=== PATIENT | male | born 1995 | race Caucasian/White ===

== ENCOUNTER 2017-06-26 10:16 | Emergency (ER) | payer SELFPAY ==
[2017-06-26 12:00] VITALS: TEMP 96.6
--- NOTE | 2017-06-26 12:48 | ED.PDOC ---
History of Present Illness - General Chief Complaint: ENT Problem Stated Complaint: sore throat,fever Time Seen by Provider: 06/26/17 12:44 Source: patient Exam Limitations: no limitations - History of Present Illness Initial Comments: Mannie Brooks 22 y/o male seen today with non productive cough for 2 weeks , achy throat today,and flulike symptoms Timing/Duration: gradual - see hpi, other Severity: moderate EENT Location: throat Prearrival Treatment: other - took OTC cough /cold medicines Presenting Symptoms: see hpi Improving Factors: nothing Worsening Factors: nothing Associated Symptoms: cough Allergies/Adverse Reactions: Allergies NO KNOWN ALLERGY Allergy (Verified 06/26/17 12:00) Home Medications: Ambulatory Orders Albuterol Inhaler [Ventolin Hfa Inhaler] 108 mcg IN Q6HRS PRN #1 inh 06/26/17 Amoxicillin [Amoxil] 1,000 mg PO BID #30 cap 06/26/17 Review of Systems - Review of Systems Constitutional: States: no symptoms reported EENTM: States: see HPI, throat pain Respiratory: States: see HPI, cough Cardiology: States: no symptoms reported Gastrointestinal/Abdominal: States: no symptoms reported Genitourinary: States: no symptoms reported Musculoskeletal: States: muscle pain All other Systems: Reviewed and Negative, No Change from Baseline Past Medical History (General) - Patient Medical History Hx Stroke: No Hx Asthma: Yes Hx Congestive Heart Failure: No Hx Diabetes: No Surgical History: no surgical history - Vaccination History Hx Influenza Vaccination: No - Social History Hx Tobacco Use: Yes Hx Chewing Tobacco Use: Yes Family Medical History - Family History Father Family History: Unknown Living Status: Unknown Physical Exam - Physical Exam General Appearance: Alert, Comfortable, No apparent distress Eye Exam: bilateral normal Ear Exam: bilateral ear: auricle normal, canal normal, TM normal Nasal Exam: normal inspection Throat Exam: normal mouth inspection, pharynx normal Neck: non-tender, supple, trachea midline Cardiovascular/Respiratory: regular rate, rhythm, no M/R/G, normal peripheral pulses, no respiratory distress, other - speaks in full sentences Abdominal Exam: non-tender Neurologic: alert, oriented x 3 Skin Exam: normal color, warm/dry Progress - Progress Progress: 06/26/17 12:52 Last Vital Signs Temp 96.6 F L 06/26/17 11:57 Pulse 56 L 06/26/17 11:57 Resp 20 06/26/17 11:57 BP 129/78 06/26/17 11:57 Pulse Ox 99 06/26/17 11:57 - Results/Orders Results/Orders: flu A/B;Strep test-negative Departure - Departure Clinical Impression: Asthmatic bronchitis with acute exacerbation Qualifiers: Asthma severity: unspecified severity Qualified Code(s): J45.901 - Unspecified asthma with (acute) exacerbation Time of Disposition: 12:53 Disposition: Discharge to Home or Self Care Condition: Good Departure Forms: ED Discharge - Pt. Copy, Patient Portal Self Enrollment Instructions: Tips for Controlling Your Asthma, The Connection Between Allergies and Asthma, DI for Asthma -- Adult Prescriptions: Albuterol Inhaler [Ventolin Hfa Inhaler] 108 mcg IN Q6HRS PRN #1 inh PRN Reason: Wheezing Amoxicillin [Amoxil] 1,000 mg PO BID #30 cap Home Medications: Ambulatory Orders Albuterol Inhaler [Ventolin Hfa Inhaler] 108 mcg IN Q6HRS PRN #1 inh 06/26/17 Amoxicillin [Amoxil] 1,000 mg PO BID #30 cap 06/26/17 Additional Instructions: Follow up with primary Md 07/01/2017 call for your appointment
[2017-06-26 13:07] VITALS: BP 130/85; O2SAT 96
== END 2017-06-26 13:07 | disposition home or self-care (01) ==
LOC: ER 10:16
DX: J45.901 Unspecified asthma with (acute) exacerbation (principal)

== ENCOUNTER 2019-09-22 18:21 | Emergency (ER) | payer SELFPAY ==
[2019-09-22] MEDS ORDERED: ALBUTEROL INH (ER DISPENSE) 1 EA INH INH ONE (18:51)
[2019-09-22] MEDS ORDERED: IBUPROFEN 200 MG TAB PO ONE (18:52)
--- NOTE | 2019-09-22 19:19 | RAD ---
EXAM: Chest,1 View CLINICAL INDICATION: 24-year-old male with shortness of breath, fever and history of lung resection. TECHNIQUE: Single view, AP portable chest was obtained. COMPARISON: None. FINDINGS: Unremarkable cardiac and mediastinal silhouette. Heart size is normal. Lungs are clear without focal opacity, pneumothorax or pleural effusions. Right-sided lung volumes appear smaller than the LEFT compatible with the patient's history of prior surgical resection with surgical suture material present at the level of the medial RIGHT upper lobe and hilar regions. The The visualized bones are within normal limits. IMPRESSION: No acute cardiopulmonary abnormalities. Electronically signed by: Michell Wolfe MD 09/22/2019 7:18 PM CDT
[2019-09-22 19:22] VITALS: TEMP 100.8
[2019-09-22] MEDS ORDERED: MONTELUKAST 10 MG TAB PO ONE (19:27)
[2019-09-22] MEDS ORDERED: predniSONE 20 MG TAB PO ONE (19:27)
[2019-09-22] MEDS ORDERED: PENICILLIN BENZATHINE 1.2 MU 1.2 MU/2 ML SYG IM ONE (19:27)
--- NOTE | 2019-09-22 19:44 | ED.PDOC ---
History of Present Illness - General Chief Complaint: General Stated Complaint: fever, sore throat cough and SOB Time Seen by Provider: 09/22/19 18:23 Source: patient Exam Limitations: no limitations - History of Present Illness Initial Comments: The patient is a 24-year-old male presented to emergency room secondary to what appears to be a sore throat and an asthma exacerbation. The patient is febrile. He has had a sore throat for the last 2 days. No known coronavirus exposure. The patient has been out of his asthma medications for a while. No productive cough. No syncope. Timing/Duration: 24 hours Severity: severe Improving Factors: nothing Worsening Factors: nothing Associated Symptoms: cough, fever/chills, shortness of breath Allergies/Adverse Reactions: Allergies NO KNOWN ALLERGY Allergy (Verified 09/22/19 18:40) Home Medications: Ambulatory Orders Albuterol Inhaler [Ventolin Hfa Inhaler] 108 mcg IN Q6HRS PRN #1 inh 06/26/17 Albuterol Inhaler [Ventolin Hfa Inhaler] 2 puff INH Q4H PRN #1 inh 09/22/19 Montelukast [Singulair] 10 mg PO DAILY #30 tab 09/22/19 predniSONE [Prednisone] 20 mg PO DAILY #5 tab 09/22/19 Review of Systems - Review of Systems Constitutional: States: fever EENTM: States: throat pain Respiratory: States: cough, short of breath, wheezing Cardiology: States: no symptoms reported Gastrointestinal/Abdominal: States: no symptoms reported Genitourinary: States: no symptoms reported Musculoskeletal: States: no symptoms reported Skin: States: no symptoms reported Neurological: States: no symptoms reported Endocrine: States: no symptoms reported All other Systems: No Change from Baseline Past Medical History (General) - Patient Medical History Hx Stroke: No Hx Asthma: Yes Hx Congestive Heart Failure: No Hx Diabetes: No Hx Cancer: No Hx Hepatitis C: No - Vaccination History Hx Tetanus, Diphtheria Vaccination: No Hx Influenza Vaccination: Yes Hx Pneumococcal Vaccination: No - Social History Hx Tobacco Use: Yes Hx Chewing Tobacco Use: Yes Hx Alcohol Use: Yes - occ Family Medical History - Family History Father Family History: Unknown Living Status: Unknown Physical Exam - Physical Exam General Appearance: Alert, No apparent distress Eye Exam: bilateral normal Ears, Nose, Throat: hearing grossly normal, pharyngeal erythema Neck: full range of motion, supple Respiratory: decreased breath sounds, accessory muscle use, wheezing Cardiovascular/Chest: normal peripheral pulses, regular rate, rhythm, no edema Peripheral Pulses: radial,right: 2+, radial,left: 2+ Gastrointestinal/Abdominal: non tender, soft Rectal Exam: deferred Back Exam: no CVA tenderness, no vertebral tenderness Extremity: normal range of motion, non-tender, normal inspection, no pedal edema, normal capillary refill 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 Rapid flu is negative. Coronavirus PCR is sent off. Progress - Progress Progress: 09/22/19 19:44 The patient is a 24-year-old male presenting with what appears to be strep throat and an asthma exacerbation. He received a dose of Bicillin LA for the strep throat. The patient is febrile from it. He should abstain from work for at least 48 hours in order to reduce spreading this around work. Additionally we did send off a coronavirus test on the patient. The patient is low probability for this being positive given the low incidence in the community, and no known exposure. Likelihood for coinfection is very low. The patient will be sent home with the albuterol inhaler and spacer used here. He will be written for another albuterol inhaler as well as prednisone to take for the next 5 days for the asthma exacerbation. He does need to keep follow-up with her primary care doctor. ER warnings are given. italo velasco [id number] - Results/Orders Results/Orders: Chest x-ray shows changes from his previous lung resection otherwise no acute pathology. Departure - Departure Clinical Impression: Strep throat Asthma exacerbation Qualifiers: Asthma severity: moderate Asthma persistence: persistent Qualified Code(s): J45.41 - Moderate persistent asthma with (acute) exacerbation Disposition: Discharge to Home or Self Care Condition: Fair Departure Forms: ED Discharge - Pt. Copy, Patient Portal Self Enrollment Instructions: Asthma, Adult (DC), Sore Throat, Adult (DC) Diet: regular diet Activity: increase activity as tolerated Prescriptions: Albuterol Inhaler [Ventolin Hfa Inhaler] 2 puff INH Q4H PRN #1 inh PRN Reason: Shortness Of Breath Montelukast [Singulair] 10 mg PO DAILY #30 tab predniSONE [Prednisone] 20 mg PO DAILY #5 tab Home Medications: Ambulatory Orders Albuterol Inhaler [Ventolin Hfa Inhaler] 108 mcg IN Q6HRS PRN #1 inh 06/26/17 Albuterol Inhaler [Ventolin Hfa Inhaler] 2 puff INH Q4H PRN #1 inh 09/22/19 Montelukast [Singulair] 10 mg PO DAILY #30 tab 09/22/19 predniSONE [Prednisone] 20 mg PO DAILY #5 tab 09/22/19 Additional Instructions: The patient is a 24-year-old male presenting with what appears to be strep throat and an asthma exacerbation. He received a dose of Bicillin LA for the strep throat. The patient is febrile from it. He should abstain from work for at least 48 hours in order to reduce spreading this around work. Additionally we did send off a coronavirus test on the patient. The patient is low probability for this being positive given the low incidence in the community, and no known exposure. Likelihood for coinfection is very low. The patient will be sent home with the albuterol inhaler and spacer used here. He will be written for another albuterol inhaler as well as prednisone to take for the next 5 days for the asthma exacerbation. He does need to keep follow-up with her primary care doctor. ER warnings are given.
[2019-09-22 20:57] VITALS: BP 111/60; O2SAT 95
== END 2019-09-22 20:18 | disposition home or self-care (01) ==
LOC: ER 18:21
DX: J02.0 Streptococcal pharyngitis (principal); J45.41 Moderate persistent asthma with (acute) exacerbation; R50.9 Fever, unspecified
CPT/HCPCS: 71045; 87502; 87635; 87880; 94664; J0561; J7512

== ENCOUNTER 2019-11-17 08:37 | Emergency (ER) | payer BC ==
[2019-11-17] MEDS ORDERED: ACETAMINOPHEN 500 MG TAB PO ONE (08:43)
--- NOTE | 2019-11-17 08:51 | ED.PDOC ---
History of Present Illness - General Time Seen by Provider: 11/17/19 08:42 - History of Present Illness Initial Comments: 24 yo M PMH Asthma presents to ED c/o cough sob subjective fever chills x 2 days. Denies drinking or smoking admits FH HTN denies FH DM has No PMD for follow up denies recent travel or contact with covid19 denies nausea vomiting diarrhea chest pain admits sob but attributes to his asthma denies diaphoresis no change in diet bowel or bladder admits disturbed rest no other c/o today. PPE worn-N95 surgical mask with attached face shield over N95 gloves and face shield over that Allergies/Adverse Reactions: Allergies NO KNOWN ALLERGY Allergy (Verified 09/22/19 18:40) Home Medications: Ambulatory Orders Albuterol Inhaler [Ventolin Hfa Inhaler] 2 puff INH Q4H PRN #1 inh 09/22/19 Acetaminophen [Tylenol] 650 mg PO Q6H PRN #30 tab 11/17/19 Azithromycin Tab [Zithromax Tab] 250 mg PO QDPC 5 Days #6 tab 11/17/19 Review of Systems - Review of Systems Constitutional: States: see HPI EENTM: States: see HPI Respiratory: States: see HPI Cardiology: States: see HPI Gastrointestinal/Abdominal: States: see HPI Genitourinary: States: see HPI Musculoskeletal: States: see HPI Skin: States: see HPI Neurological: States: see HPI Endocrine: States: see HPI Hematologic/Lymphatic: States: see HPI Past Medical History (General) - Patient Medical History Hx Stroke: No Hx Asthma: Yes Hx Congestive Heart Failure: No Hx Diabetes: No Hx Cancer: No Hx Hepatitis C: No - Vaccination History Hx Tetanus, Diphtheria Vaccination: No Hx Influenza Vaccination: Yes Hx Pneumococcal Vaccination: No - Social History Hx Tobacco Use: Yes Hx Chewing Tobacco Use: Yes Hx Alcohol Use: Yes - occ Family Medical History - Family History Father Family History: Unknown Living Status: Unknown Physical Exam - Physical Exam General Appearance: No apparent distress, Other - coughing in surgical mask Eye Exam: bilateral normal Ears, Nose, Throat: pharyngeal erythema Neck: non-tender, full range of motion Respiratory: no respiratory distress Cardiovascular/Chest: regular rate, rhythm Gastrointestinal/Abdominal: non tender, soft Rectal Exam: deferred Back Exam: normal inspection Extremity: normal range of motion, non-tender Neurologic: no motor/sensory deficits Skin Exam: normal color Progress - Progress Progress: 11/17/19 08:55 A/P-Pharyngitis Cough SOB Asthmatic Bronchitis URI-tylenol covid swab flu swab cxr if unremarkable d/c follow up pcp tylenol azithromycin for the pharyngitis - Results/Orders Results/Orders: Laboratory Tests 11/17/19 08:55 Group A Strep Rapid Positive Laboratory Tests 11/17/19 08:55 Group A Strep Rapid Positive EXAM DESCRIPTION: Chest,1 View CLINICAL HISTORY: cough sob COMPARISON: September 22, 2019 IMPRESSION: Single AP portable upright view of the chest shows cardiac silhouette and pulmonary vasculature to be within normal limits. Lungs are normally aerated and clear. Loss in the right hemithorax is again seen compatible with previous chest surgery. No obvious pleural effusion or pneumothorax is seen. Mild blunting of the right costophrenic angle could represent chronic scarring. Electronically signed by: Raphael Aleman MD 11/17/2019 9:46 AM CDT Departure - Departure Clinical Impression: Cough, SOB (shortness of breath) Pharyngitis Qualifiers: Pharyngitis/tonsillitis etiology: streptococcus Qualified Code(s): J02.0 - Streptococcal pharyngitis URI (upper respiratory infection) Qualifiers: URI type: unspecified URI Qualified Code(s): J06.9 - Acute upper respiratory infection, unspecified Asthmatic bronchitis Qualifiers: Asthma severity: mild Asthma persistence: intermittent Asthma complication type: uncomplicated Qualified Code(s): J45.20 - Mild intermittent asthma, uncomplicated Time of Disposition: 09:55 Disposition: Discharge to Home or Self Care Condition: Good Referrals: KARTIK ABREU MD G REF [Referring] - 1-2 Weeks Prescriptions: Acetaminophen [Tylenol] 650 mg PO Q6H PRN #30 tab PRN Reason: Pain Azithromycin Tab [Zithromax Tab] 250 mg PO QDPC 5 Days #6 tab Home Medications: Ambulatory Orders Albuterol Inhaler [Ventolin Hfa Inhaler] 2 puff INH Q4H PRN #1 inh 09/22/19 Acetaminophen [Tylenol] 650 mg PO Q6H PRN #30 tab 11/17/19 Azithromycin Tab [Zithromax Tab] 250 mg PO QDPC 5 Days #6 tab 11/17/19
[2019-11-17 09:31] VITALS: O2SAT 95
--- NOTE | 2019-11-17 09:48 | RAD ---
EXAM DESCRIPTION: Chest,1 View CLINICAL HISTORY: cough sob COMPARISON: September 22, 2019 IMPRESSION: Single AP portable upright view of the chest shows cardiac silhouette and pulmonary vasculature to be within normal limits. Lungs are normally aerated and clear. Loss in the right hemithorax is again seen compatible with previous chest surgery. No obvious pleural effusion or pneumothorax is seen. Mild blunting of the right costophrenic angle could represent chronic scarring. Electronically signed by: Raphael Aleman MD 11/17/2019 9:46 AM CDT
[2019-11-17] MEDS ORDERED: IBUPROFEN 200 MG TAB PO ONE (10:04)
[2019-11-17 10:19] VITALS: BP 116/54; TEMP 100.4
== END 2019-11-17 10:17 | disposition home or self-care (01) ==
LOC: ER 08:37
DX: J02.0 Streptococcal pharyngitis (principal); J06.9 Acute upper respiratory infection, unspecified; J45.20 Mild intermittent asthma, uncomplicated; R06.02 Shortness of breath; F17.200 Nicotine dependence, unspecified, uncomplicated
CPT/HCPCS: 71045; 87502; 87880; U0002

== ENCOUNTER 2020-03-28 21:03 | Emergency (ER) | payer SELFPAY ==
[2020-03-28] MEDS ORDERED: predniSONE 20 MG TAB PO ONE (21:11)
[2020-03-28] MEDS ORDERED: KETOROLAC TROMETHAMINE INJ 30 MG/ML VIAL IM ONE (21:11)
[2020-03-28 21:24] VITALS: TEMP 98
--- NOTE | 2020-03-28 21:41 | RAD ---
EXAM DESCRIPTION: Abdomen Flat Upright 03/28/2020 9:39 PM CDT CLINICAL HISTORY: 24 years, Male, left flank and abd pain COMPARISON: None. FINDINGS: 2 X-ray views of the of the abdomen (supine and erect) were performed. No prior films are available this time for comparison. The gas pattern is nondiagnostic. No signs of ileus or obstruction. No free air under the diaphragm is noted no abnormal opacifications are identified in either renal fossa. The psoas shadows demonstrate to be within normal limits. The bone windows demonstrate to be unremarkable. IMPRESSION: NONDIAGNOSTIC GAS PATTERN. NO SIGNS OF OBSTRUCTION OR ILEUS. Electronically signed by: Frederic Landis MD 03/28/2020 9:40 PM CDT
--- NOTE | 2020-03-28 22:49 | RAD ---
EXAM DESCRIPTION: Lumbar Spine 3 Views 03/28/2020 10:47 PM CDT CLINICAL HISTORY: 24 years, Male, left flank and abd pain COMPARISON: None. FINDINGS: Three X-ray views of the Lumbar spine (frontal, lateral and coned-down views) were performed. There is normal anatomic alignment of the lumbar vertebral bodies. There is preservation of the interbody disc heights and the vertebral body heights. The adjacent soft tissues are unremarkable. There is no evidence for fracture or subluxation. There is no evidence for spondylolysis. The facet joints are preserved. IMPRESSION: NO EVIDENCE FOR FRACTURE OR SUBLUXATION. Electronically signed by: Frederic Landis MD 03/28/2020 10:48 PM CDT
--- NOTE | 2020-03-28 22:53 | ED.PDOC ---
History of Present Illness - General Chief Complaint: Back Pain or Injury Stated Complaint: back pain Time Seen by Provider: 03/28/20 21:08 Source: patient Exam Limitations: no limitations - History of Present Illness Initial Comments: The patient is a 24-year-old male presented emergency room secondary to left flank and lateral abdominal pain for the last 4 days. It is worse with movement. He denies any fever. No blood in the stools. Possible mild constipation. No nausea or vomiting. He does not remember injuring the area. There is no overlying rash. No sore throat or runny nose. No congestion. No chest pain or shortness of breath. No tenderness to palpation over the spinous processes. Again no recent trauma. He does have some reproducible tenderness to palpation over the area. No definite palpable mass. No palpable hepatosplenomegaly. No rebound or peritoneal signs. No history of any diverticulitis. Timing/Duration: other - Around 4 days Severity: moderate Improving Factors: immobilization Worsening Factors: movement Associated Symptoms: denies symptoms Allergies/Adverse Reactions: Allergies NO KNOWN ALLERGY Allergy (Verified 02/12/20 14:02) Home Medications: Ambulatory Orders Acetaminophen W/ Codeine [Tylenol W/ CODEINE #3] 1 tab PO Q6H PRN 7 Days #10 tab 02/12/20 Cephalexin Monohydrate [Keflex] 500 mg PO BID 5 Days #10 cap 02/12/20 Cyclobenzaprine HCl [Flexeril] 5 mg PO TID PRN #30 tab 03/28/20 predniSONE [Prednisone] 20 mg PO DAILY #5 tab 03/28/20 Review of Systems - Review of Systems Constitutional: States: no symptoms reported EENTM: States: no symptoms reported Respiratory: States: no symptoms reported Cardiology: States: no symptoms reported Gastrointestinal/Abdominal: States: abdominal pain Genitourinary: States: no symptoms reported Musculoskeletal: States: back pain Skin: States: no symptoms reported Neurological: States: no symptoms reported Endocrine: States: no symptoms reported All other Systems: No Change from Baseline Past Medical History (General) - Patient Medical History Hx Stroke: No Hx Asthma: Yes Hx of COPD: No Hx Cardiac Disorders: No Hx Congestive Heart Failure: No Hx Hypertension: No Hx Diabetes: No Hx Cancer: No Hx Hepatitis C: No Surgical History: other - Vaccination History Hx Tetanus, Diphtheria Vaccination: No Hx Influenza Vaccination: No Hx Pneumococcal Vaccination: No Immunizations Up to Date: No - Social History Hx Tobacco Use: No Hx Chewing Tobacco Use: Yes Hx Alcohol Use: Yes - occ Hx Substance Use: No Hx Substance Use Treatment: No Hx Depression: No - Female History Patient : No Family Medical History - Family History Father Family History: Unknown Living Status: Unknown Physical Exam - Physical Exam General Appearance: Alert, No apparent distress Eye Exam: bilateral normal Ears, Nose, Throat: hearing grossly normal Neck: full range of motion Respiratory: no respiratory distress, no accessory muscle use Cardiovascular/Chest: normal peripheral pulses, no edema Peripheral Pulses: radial,right: 2+, radial,left: 2+ Gastrointestinal/Abdominal: soft, other - Mild left lateral abdominal discomfort to palpation. See above. 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 X-ray does show mild to moderate constipation and the patient is receiving a dose of milk of magnesia here. This is most likely primarily discomfort from lumbar muscle spasm. The patient is going to be placed on prednisone for 5 days and he will also be written for mild muscle relaxer. Topical heat may prove beneficial as well. He needs to keep himself well-hydrated and Motrin can also be used for discomfort. ER warnings are given. If patient worsens instead of improves then additional work-up may be warranted. italo velasco 747 - Results/Orders Results/Orders: Laboratory Tests 03/28/20 21:52 Urine Color Yellow Urine Appearance Clear Urine pH 5.5 Ur Specific [place] >= 1.030 Urine Protein Negative Urine Glucose (UA) Negative Urine Ketones Negative Urine Blood Negative Urine Nitrite Negative Urine Bilirubin Negative Urine Urobilinogen 1.0 Ur Leukocyte Esterase Negative Urine RBC 0 Urine WBC 0-1 Ur Epithelial Cells 0 Urine Bacteria 0 X-ray of the lumbar spine and abdomen showed no acute pathology. There does appear to be a moderate buildup of stool. Departure - Departure Clinical Impression: Low back pain Qualifiers: Chronicity: acute Back pain laterality: left Sciatica presence: without sciatica Qualified Code(s): M54.5 - Low back pain Constipation Qualifiers: Constipation type: unspecified constipation type Qualified Code(s): K59.00 - Constipation, unspecified Disposition: Discharge to Home or Self Care Condition: Fair Departure Forms: ED Discharge - Pt. Copy, Patient Portal Self Enrollment Instructions: DI for Low Back Pain, Low Back Pain (DC) Diet: regular diet Activity: increase activity as tolerated Prescriptions: Cyclobenzaprine HCl [Flexeril] 5 mg PO TID PRN #30 tab PRN Reason: Muscle Spasms predniSONE [Prednisone] 20 mg PO DAILY #5 tab Home Medications: Ambulatory Orders Acetaminophen W/ Codeine [Tylenol W/ CODEINE #3] 1 tab PO Q6H PRN 7 Days #10 tab 02/12/20 Cephalexin Monohydrate [Keflex] 500 mg PO BID 5 Days #10 cap 02/12/20 Cyclobenzaprine HCl [Flexeril] 5 mg PO TID PRN #30 tab 03/28/20 predniSONE [Prednisone] 20 mg PO DAILY #5 tab 03/28/20 Additional Instructions: The patient is a 24-year-old male presented emergency room secondary to left low back and lateral abdominal discomfort for the last 4 days. X-ray does show mild to moderate constipation and the patient is receiving a dose of milk of magnesia here. This is most likely primarily discomfort from lumbar muscle spasm. The patient is going to be placed on prednisone for 5 days and he will also be written for mild muscle relaxer. Topical heat may prove beneficial as well. He needs to keep himself well-hydrated and Motrin can also be used for discomfort. ER warnings are given. If patient worsens instead of improves then additional work-up may be warranted.
[2020-03-28] MEDS ORDERED: CYCLOBENZAPRINE HCL 5 MG TAB PO ONE (22:54)
[2020-03-28] MEDS ORDERED: MAGNESIUM HYDROXIDE 30 ML UD PO ONE (22:54)
[2020-03-28 23:06] VITALS: BP 124/73; O2SAT 97
== END 2020-03-28 23:06 | disposition home or self-care (01) ==
LOC: ER 21:03
DX: M54.5 Low back pain (principal); K59.00 Constipation, unspecified; Z87.891 Personal history of nicotine dependence; J45.909 Unspecified asthma, uncomplicated
CPT/HCPCS: 72100; 74019; 81001; J1885; J7512